=== PATIENT | female | born 1965 | race Caucasian/White ===

== ENCOUNTER 2021-03-05 00:24 | Inpatient (IN) | payer OTHER ==
[~2021-03-05] VITALS: Ht 154.9 cm; Wt 43.1 kg
[~2021-03-05 00:24] MED LIST: ALENDRONATE SOD70 MG PO; AMLODIPINE BESYL5 MG PO; AMOX TR-K CLV1 EAC4 PO; ASPIRIN CHEWABL81 MG PO; ATORVASTATIN CA80 MG PO; CLOPIDOGREL75 MG PO; COMBIVENT RESPIM4 GM INH; DOXYCYCLINE HY100 M2 PO; ISOSORBIDE MON120 MG PO; LISINOPRIL2.5 MG PO; NITROGLYCERIN0.4 MG SL; ONDANSETRON ODT4 MG PO; RANOLAZINE ER500 MG PO; SUBOXONE 8 MG-1 EACH SL; TENORMIN 50 MG50 MG PO; VENLAFAXINE HCL75 MG PO; VENTOLIN HFA 66.7 GM INH
[2021-03-05 04:32] LABS: HEMOGLOBIN 16.6 gm/dl (12.3-15.3); RED BLOOD COUNT 4.83 M/UL (4.00-5.10); WHITE BLOOD COUNT 12.3 K/UL (4.5-11.0)
[2021-03-05 05:03] LABS: BUN/CREATININE RATIO 19 (0-10)
[2021-03-05] MEDS ORDERED: NORVASC5 MG PO (10:56)
--- NOTE | 2021-03-06 01:38 | NUR ---
UPON ENTERING PT'S BATHROOM, THE SMELL OF CIGARETTE SMOKE WAS VERY STRONG. INSTRUCTED THE PT THAT SHE WAS NOT ALLOWED TO SMOKE IN HER ROOM, BATHROOM, OR ON HOSPITAL PROPERTY. EDUCATED PT ON THE RISKS AND FACTORS OF SMOKING IN HER ROOM.
[2021-03-07 06:13] LABS: WHITE BLOOD COUNT 10.2 K/UL (4.5-11.0)
[2021-03-07 06:16] LABS: HEMOGLOBIN 11.9 gm/dl (12.3-15.3); RED BLOOD COUNT 3.5 M/UL (4.00-5.10)
[2021-03-07 06:28] LABS: BUN/CREATININE RATIO 24 (0-10)
[2021-03-07] MEDS ORDERED: ECOTRIN81 MG PO (12:15)
[2021-03-07] MEDS ORDERED: LISINOPRIL5 MG PO (12:15)
[2021-03-07] MEDS ORDERED: LEVOFLOXACIN500 MG PO (12:15)
[2021-03-07] MEDS ORDERED: VENTOLIN HFA 66.7 GM INH (12:15)
== END 2021-03-07 15:35 | disposition home or self-care (01) | DRG 871 ==
LOC: ER1 00:24 → CDU 06:26 → MED SURG 4 06:26
PROVIDERS: Student in an Organized Health Care Education/Training Program; ADMIT Internal Medicine
PROC: B24BZZ4 Ultrasonography of Heart with Aorta, Transesophageal (ICD-10-PCS; principal; 2021-03-06)
DX: A41.9 Sepsis, unspecified organism (principal); I21.A1 Myocardial infarction type 2; J44.1 Chronic obstructive pulmonary disease with (acute) exacerbation; E87.1 Hypo-osmolality and hyponatremia; M81.0 Age-related osteoporosis without current pathological fracture; E78.5 Hyperlipidemia, unspecified; Z20.822 Contact with and (suspected) exposure to COVID-19; F41.9 Anxiety disorder, unspecified; I08.3 Combined rheumatic disorders of mitral, aortic and tricuspid valves; I27.20 Pulmonary hypertension, unspecified; I25.10 Atherosclerotic heart disease of native coronary artery without angina pectoris; Z79.01 Long term (current) use of anticoagulants; Z79.82 Long term (current) use of aspirin; Z95.5 Presence of coronary angioplasty implant and graft; Z87.891 Personal history of nicotine dependence; Z87.01 Personal history of pneumonia (recurrent); Z85.3 Personal history of malignant neoplasm of breast; Z90.49 Acquired absence of other specified parts of digestive tract; Z88.2 Allergy status to sulfonamides; Z88.8 Allergy status to other drugs, medicaments and biological substances; Z90.3 Acquired absence of stomach [part of]; Z80.9 Family history of malignant neoplasm, unspecified; Z82.49 Family history of ischemic heart disease and other diseases of the circulatory system; Z83.3 Family history of diabetes mellitus
CPT/HCPCS: ECHO; 0240U; 36415; 71046; 78452; 80048; 80053; 82550; 82553; 83605; 83874; 83880; 84484; 85025; 85379; 85652; 86140; 87040; 93005; 93017; 93306; 94640; 94664; 94760; 99285; A9502; J0456; J0696; J1650; J2785; J2920; J7030